=== PATIENT | female | born 2005 | race Caucasian/White ===

== ENCOUNTER 2023-08-16 17:13 | Emergency (ER) | payer OTHER, SELFPAY ==
[2023-08-16 17:37] VITALS: BP 104/63; PULSE 76; RESP 16; TEMP 36.6; O2SAT 100
--- NOTE | 2023-08-16 17:43 | ED.FEMALEGU ---
HPI - Female Genitourinary General Chief complaint: Urogenital-Female Stated complaint: uti Time Seen by Provider: 08/16/23 17:43 Source: patient Mode of arrival: ambulatory Limitations: no limitations History of Present Illness HPI Narrative: 17-year-old female presents with complaint of urinary frequency, urgency, dysuria for 1 week. Denies back pain. Denies nausea vomiting diarrhea. Afebrile. Patient has been taking azo with no relief of symptoms. All systems reviewed and negative except as noted above. Related Data Allergies Allergy/AdvReac Type Severity Reaction Status Date / Time amoxicillin AdvReac Nausea and Verified 08/16/23 17:51 Vomiting ciprofloxacin [From Cipro] AdvReac Abdominal Verified 08/16/23 17:52 Pain Review of Systems Review of Systems: CONSTITUTIONAL: Denies fever, chills, or sweats. EYES: Denies visual changes, redness, or discharge. ENT: Denies rhinorrhea, congestion, sore throat, or otalgia. CARDIOVASCULAR: Denies chest pain, palpitations, or edema. RESPIRATORY: Denies cough or dyspnea. GASTROINTESTINAL: Denies abdominal pain, nausea, vomiting, or diarrhea. GENITOURINARY: Reports dysuria, frequency, urgency. Denies hematuria. SKIN: Denies rash or itching. MUSCULOSKELETAL: Denies back pain, joint pain, or myalgia. NEUROLOGIC: Denies headache, numbness, or weakness. PSYCHIATRIC: Denies anxiety or depression. All other systems reviewed are negative, except as documented in HPI. PMFSH Comments At time of signature, agree with nursing past medical, surgical, social and family history. There is no relevant family history pertinent to the presenting complaint. Exam Narrative: GENERAL: This is a well-nourished, well-developed patient, in no apparent distress. HEAD: normocephalic, atraumatic. EYES: PERRL. Sclera clear/white. Vision is grossly intact. EARS: External ears normal NOSE: External nose normal NECK: Neck supple, non-tender without lymphadenopathy, masses or thyromegaly. CARDIOVASCULAR: Regular rate and rhythm without murmurs, gallops, or rubs. RESPIRATORY: Clear to auscultation. Breath sounds equal bilaterally. No wheezes, rales, or rhonchi. SKIN: warm, Dry, intact with no suspicious lesions or rash, good texture and turgor. NEURO: awake, alert, and oriented to person, place and time. There were no obvious focal neurologic abnormalities. EXTREMITIES: No joint tenderness, effusion, or edema noted. Course Course Level of Care: Express Care Visit Vital Signs Vital signs: Vital Signs Temperature 36.6 C 08/16/23 17:37 Pulse Rate 76 08/16/23 17:37 Respiratory Rate 16 08/16/23 17:37 Blood Pressure 104/63 08/16/23 17:37 Pulse Oximetry 100 08/16/23 17:37 Oxygen Delivery Room Air 08/16/23 17:37 Temperature 36.6 C 08/16/23 17:37 Pulse Rate 76 08/16/23 17:37 Respiratory Rate 16 08/16/23 17:37 Blood Pressure 104/63 08/16/23 17:37 Pulse Oximetry 100 08/16/23 17:37 Oxygen Delivery Room Air 08/16/23 17:37 reviewed MDM - Female Genitourinary MDM Narrative Medical decision making narrative: Patient is aware of diagnosis, understands and agrees to treatment plan. Anticipatory guidance given. Patient agrees to follow-up as directed and is aware of reasons to seek care at the emergency department. Portions of this record may have been created with voice recognition software Differential Diagnosis Differential diagnosis: Likely urinary tract infection Discharge Plan Discharge Clinical Impression: Urinary tract infection Patient Disposition: Home, Self-Care Condition: Stable Instructions: Antibiotic Form, Urinary Tract Infection in Women (ED) Additional Instructions: take antibiotic as prescribed until gone. Take ibuprofen or Tylenol as needed for pain and fever. Drink at least 64 oz of water a day. Follow-up your primary care physician if symptoms not improving. If you have severe p
== END 2023-08-16 18:03 | disposition home or self-care (01) ==
PROVIDERS: Emergency Provider Nurse Practitioner Family
DX: N39.0 Urinary tract infection, site not specified (principal); B96.20 Unspecified Escherichia coli [E. coli] as the cause of diseases classified elsewhere
CPT/HCPCS: 81003; 87077; 87086; 87186; 99213; G0463